=== PATIENT | male | born 1975 | race Caucasian/White ===

== ENCOUNTER → 2018-11-30 | Outpatient (CLI) | payer MEDICARE ==
--- NOTE | 2018-11-30 16:57 | REP ---
ULTRASOUND RIGHT 1ST DIGIT: Ultrasound right 1st digit ws performed at the site of a palpable lump. No cystic or solid nodules are seen at this location. Further evaluation may be made with MRI is clinically indicated. Electronically Signed by Miguel Gavin MD 11/30/2018 07:46 P
== END ==
LOC: M RAD 14:12
PROVIDERS: ATTEND Physician Assistant
DX: R22.31 Localized swelling, mass and lump, right upper limb (principal); L84 Corns and callosities

== ENCOUNTER → 2018-12-08 | Outpatient (REF) | payer MEDICARE | LOC: M SFHCPLAZ 18:16 | PROVIDERS: ATTEND Dermatology | DX: D22.30 Melanocytic nevi of unspecified part of face (principal) ==

== ENCOUNTER 2024-07-26 18:42 | Inpatient (IN) | payer MEDICARE, MEDICAID ==
[~2024-07-26] VITALS: Ht 193 cm; Wt 119.5 kg
[2024-07-26] MEDS: NS 1,000 ML IV ONE (18:55)
[2024-07-26] MEDS: ONDANSETRON 4MG 2ML VIAL IV ONE (19:16)
[2024-07-26] MEDS: MORPHINE 4 MG/ML 1ML VIAL IV ONE ×2 (19:16→22:37)
[2024-07-26 19:33] LABS: BASO # 0.1 10^3/uL (0.0-0.2); BASO % 0.5 % (0.0-1.0); EOS # 0.2 10^3/uL (0.0-0.5); EOS % 1.6 % (0.0-3.0); HEMATOCRIT 47.3 % (42.0-52.0); HEMOGLOBIN 16.3 g/dl (13.5-17.5); MEAN CORPUSCULAR HEMOGLOBIN 30.2 pg (27.0-33.0); MEAN CORPUSCULAR HGB CONC 34.5 g/dl (32.0-36.5); MEAN CORPUSCULAR VOLUME 87.8 fl (80.0-96.0); MONO # 0.8 10^3/uL (0.0-0.8); MONO % 8.8 % (2.0-8.0); NEUTROPHILS % 66.3 % (36.0-66.0); PLATELET COUNT, AUTOMATED 250 10^3/uL (150-450); RED BLOOD COUNT 5.39 10^6/uL (4.30-6.10); WHITE BLOOD COUNT 9.1 10^3/uL (4.0-10.0)
[2024-07-26 19:54] LABS: BLOOD UREA NITROGEN 18 MG/DL (9-23); CALCIUM LEVEL 9.2 MG/DL (8.5-10.1); CARBON DIOXIDE LEVEL 23 MMOL/L (20-31); CHLORIDE LEVEL 113 MMOL/L (98-107); CREATININE FOR GFR 0.95 MG/DL (0.70-1.30); GLOMERULAR FILTRATION RATE > 60.0 (>60); GLUCOSE, FASTING 193 MG/DL (60-100); MAGNESIUM LEVEL 2.2 MG/DL (1.8-2.4); POTASSIUM SERUM 4.4 MMOL/L (3.5-5.1); SODIUM LEVEL 142 MMOL/L (136-145)
[2024-07-26 19:56] LABS: THYROID STIMULATING HORMONE 5.121 uIU/ML (0.55-4.78)
[2024-07-26 19:57] LABS: FREE T4 0.85 NG/DL (0.89-1.76)
[2024-07-26] MEDS: MORPHINE 4 MG/ML 1ML VIAL IV PRN (21:10)
[2024-07-27] VITALS (11 sets, daily range): BP systolic 117–139; BP diastolic 67–94; TEMP 96.9–98.8; O2SAT 92–98
[2024-07-27] MEDS: NS 1,000 ML IV SCH (01:20)
[2024-07-27] MEDS ORDERED: BETA0.0543 TOP (02:06)
[2024-07-27] MEDS ORDERED: ADDE20TA PO (02:06)
[2024-07-27] MEDS ORDERED: BUPR-71 PO (02:06)
[2024-07-27] MEDS ORDERED: ZOLO100T PO (02:06)
[2024-07-27] MEDS ORDERED: LISI10TA22 PO (02:06)
[2024-07-27] MEDS ORDERED: ATOR40TA75 PO (02:06)
[2024-07-27] MEDS ORDERED: HOME MED LIST COMPLETE! XX SCH (02:10)
[2024-07-27 02:13] LABS: ALBUMIN 3.6 G/DL (3.2-5.2); ALKALINE PHOSPHATASE 110 U/L (46-116); ALT/SGPT 33 U/L (7.0-40); AST/SGOT 27 U/L (<34); BILIRUBIN,TOTAL 0.3 MG/DL (0.3-1.2); BLOOD UREA NITROGEN 14 MG/DL (9-23); CALCIUM LEVEL 8.4 MG/DL (8.5-10.1); CARBON DIOXIDE LEVEL 25 MMOL/L (20-31); CHLORIDE LEVEL 112 MMOL/L (98-107); CREATININE FOR GFR 1.02 MG/DL (0.70-1.30); GLOMERULAR FILTRATION RATE > 60.0 (>60); GLUCOSE, FASTING 129 MG/DL (60-100); POTASSIUM SERUM 4.6 MMOL/L (3.5-5.1); SODIUM LEVEL 141 MMOL/L (136-145); TOTAL PROTEIN 6.4 G/DL (5.7-8.2)
[2024-07-27] MEDS ORDERED: ADDERALL 5 MG TAB PO PRN (06:00)
[2024-07-27 06:25] LABS: HEMATOCRIT 43.8 % (42.0-52.0); HEMOGLOBIN 14.6 g/dl (13.5-17.5); MEAN CORPUSCULAR HGB CONC 33.3 g/dl (32.0-36.5); MEAN CORPUSCULAR VOLUME 90.1 fl (80.0-96.0); PLATELET COUNT, AUTOMATED 202 10^3/uL (150-450); RED BLOOD COUNT 4.86 10^6/uL (4.30-6.10); WHITE BLOOD COUNT 8.6 10^3/uL (4.0-10.0)
[2024-07-27] MEDS: MORPHINE 4 MG/ML 1ML VIAL IV PRN (07:50)
[2024-07-27 08:14] LABS: INR 1.04; PARTIAL THROMBOPLASTIN TIME 26.7 SECONDS (24.8-34.2); PROTHROMBIN TIME 13.3 SECONDS (12.5-14.5)
[2024-07-27] MEDS: buPROPion **SR TABLET** (ZYBAN) 150MG PO SCH (08:43)
[2024-07-27] MEDS: SERTRALINE 100 MG TAB PO SCH (08:44)
[2024-07-27] MEDS ORDERED: fentaNYL 100 MCG/2 ML INJECTION As Ordered ONE (12:55)
[2024-07-27] MEDS ORDERED: propofoL 200 MG/20 ML VIAL As Ordered ONE (12:56)
[2024-07-27] MEDS ORDERED: LIDOCAINE 2% 100MG/5ML SDV (FOR ANES.) As Ordered ONE (12:56)
[2024-07-27] MEDS ORDERED: ACETAMINOPHEN 1000MG 100ML IV BAG As Ordered ONE (12:56)
[2024-07-27] MEDS: MIDAZOLAM INJ 2MG/2ML VIAL IV PRN (13:16)
[2024-07-27] MEDS: fentaNYL 100 MCG/2 ML INJECTION IV PRN (13:16)
[2024-07-27] MEDS: ROPIvacaine 0.5% 30ML VIAL PN ONE (13:17)
[2024-07-27] MEDS: dexAMETHasone 10MG/1ML VIAL PRES.FREE PN ONE (13:17)
[2024-07-27] MEDS: LIDOCAINE 1% SDV 5ML VIAL PN ONE (13:17)
[2024-07-27] MEDS: ceFAZolin 1GM VIAL As Ordered ONE (14:11)
[2024-07-27] MEDS: ceFAZolin 2 GM/D5W 50 ML IV BAG As Ordered ONE (14:11)
[2024-07-27] MEDS ORDERED: KETOROLAC 60MG 2ML VIAL As Ordered ONE (14:22)
[2024-07-27] MEDS ORDERED: ONDANSETRON 4MG 2ML VIAL As Ordered ONE (14:22)
[2024-07-27] MEDS: ATORVASTATIN 20 MG TAB PO SCH (20:28)
[2024-07-27] MEDS: ceFAZolin SOD 2 GM in IV 1 EA IV SCH (20:33)
[2024-07-28] VITALS (8 sets, daily range): BP systolic 103–127; BP diastolic 63–79; TEMP 97.6–98.8; O2SAT 95–97
[2024-07-28] MEDS: IBUPROFEN 600MG TAB PO PRN (01:55)
[2024-07-28 07:14] LABS: HEMATOCRIT 37.3 % (42.0-52.0); MEAN CORPUSCULAR HGB CONC 33.5 g/dl (32.0-36.5); MEAN CORPUSCULAR VOLUME 89.4 fl (80.0-96.0); PLATELET COUNT, AUTOMATED 161 10^3/uL (150-450); RED BLOOD COUNT 4.17 10^6/uL (4.30-6.10); WHITE BLOOD COUNT 8.3 10^3/uL (4.0-10.0)
[2024-07-28 07:15] LABS: HEMOGLOBIN 12.5 g/dl (13.5-17.5)
[2024-07-28 07:29] LABS: ALBUMIN 2.9 G/DL (3.2-5.2); ALKALINE PHOSPHATASE 88 U/L (46-116); ALT/SGPT 26 U/L (7.0-40); AST/SGOT 35 U/L (<34); BILIRUBIN,TOTAL 0.5 MG/DL (0.3-1.2); BLOOD UREA NITROGEN 14 MG/DL (9-23); CALCIUM LEVEL 8.2 MG/DL (8.5-10.1); CARBON DIOXIDE LEVEL 27 MMOL/L (20-31); CHLORIDE LEVEL 109 MMOL/L (98-107); CREATININE FOR GFR 0.83 MG/DL (0.70-1.30); GLOMERULAR FILTRATION RATE > 60.0 (>60); GLUCOSE, FASTING 146 MG/DL (60-100); POTASSIUM SERUM 4.3 MMOL/L (3.5-5.1); SODIUM LEVEL 140 MMOL/L (136-145); TOTAL PROTEIN 5.5 G/DL (5.7-8.2)
[2024-07-28] MEDS ORDERED: CALCIUM CARBONATE 500 MG CHEW U/D PO PRN (16:30)
[2024-07-28] MEDS: CEFDINIR 300 MG CAP (OMNICEF) PO SCH (20:04)
[2024-07-28] MEDS: ACETAMINOPHEN 500 MG TAB PO PRN (21:13)
[2024-07-28] MEDS: GABAPENTIN 300 MG CAP PO SCH (23:43)
[2024-07-28] MEDS: CYCLOBENZAPRINE 5MG TABLET PO SCH (23:43)
[2024-07-29] MEDS: ACETAMINOPHEN TAB 650MG DOSE (2X325MG) PO SCH (03:16)
[2024-07-29 03:34] VITALS: BP 127/76; TEMP 97.8; O2SAT 95
[2024-07-29 06:48] LABS: HEMATOCRIT 36.3 % (42.0-52.0); HEMOGLOBIN 11.8 g/dl (13.5-17.5); MEAN CORPUSCULAR HEMOGLOBIN 29.4 pg (27.0-33.0); MEAN CORPUSCULAR HGB CONC 32.5 g/dl (32.0-36.5); MEAN CORPUSCULAR VOLUME 90.5 fl (80.0-96.0); PLATELET COUNT, AUTOMATED 141 10^3/uL (150-450); RED BLOOD COUNT 4.01 10^6/uL (4.30-6.10); WHITE BLOOD COUNT 5.7 10^3/uL (4.0-10.0)
[2024-07-29 07:12] LABS: ALBUMIN 2.7 G/DL (3.2-5.2); ALKALINE PHOSPHATASE 79 U/L (46-116); ALT/SGPT 17 U/L (7.0-40); AST/SGOT 25 U/L (<34); BILIRUBIN,TOTAL 0.5 MG/DL (0.3-1.2); BLOOD UREA NITROGEN 13 MG/DL (9-23); CALCIUM LEVEL 8.1 MG/DL (8.5-10.1); CARBON DIOXIDE LEVEL 29 MMOL/L (20-31); CHLORIDE LEVEL 116 MMOL/L (98-107); CREATININE FOR GFR 0.83 MG/DL (0.70-1.30); GLOMERULAR FILTRATION RATE > 60.0 (>60); GLUCOSE, FASTING 110 MG/DL (60-100); POTASSIUM SERUM 4.3 MMOL/L (3.5-5.1); SODIUM LEVEL 147 MMOL/L (136-145); TOTAL PROTEIN 5.3 G/DL (5.7-8.2)
[2024-07-29 07:28] VITALS: BP 129/78; TEMP 97; O2SAT 96
[2024-07-29] MEDS: OMEPRAZOLE 20MG CAP PO SCH (09:17)
[2024-07-29] MEDS: ENOXAPARIN 40MG/0.4ML SYRINGE (J1650 PER 10MG) SC SCH (09:18)
[2024-07-29 12:00] VITALS: BP 121/80; TEMP 97.5; O2SAT 97
[2024-07-29 15:31] VITALS: BP 132/75; TEMP 99.2; O2SAT 98
[2024-07-29 20:22] VITALS: BP 124/77; TEMP 98.7; O2SAT 96
[2024-07-30 03:18] VITALS: BP 144/87; TEMP 98.7; O2SAT 96
[2024-07-30 05:56] LABS: HEMATOCRIT 37.3 % (42.0-52.0); HEMOGLOBIN 12.4 g/dl (13.5-17.5); MEAN CORPUSCULAR HEMOGLOBIN 29.8 pg (27.0-33.0); MEAN CORPUSCULAR HGB CONC 33.2 g/dl (32.0-36.5); MEAN CORPUSCULAR VOLUME 89.7 fl (80.0-96.0); PLATELET COUNT, AUTOMATED 151 10^3/uL (150-450); RED BLOOD COUNT 4.16 10^6/uL (4.30-6.10); WHITE BLOOD COUNT 5.5 10^3/uL (4.0-10.0)
[2024-07-30 06:24] LABS: ALBUMIN 2.7 G/DL (3.2-5.2); ALKALINE PHOSPHATASE 82 U/L (46-116); ALT/SGPT 18 U/L (7.0-40); AST/SGOT 21 U/L (<34); BILIRUBIN,TOTAL 0.4 MG/DL (0.3-1.2); BLOOD UREA NITROGEN 11 MG/DL (9-23); CARBON DIOXIDE LEVEL 28 MMOL/L (20-31); CHLORIDE LEVEL 114 MMOL/L (98-107); CREATININE FOR GFR 0.77 MG/DL (0.70-1.30); GLOMERULAR FILTRATION RATE > 60.0 (>60); GLUCOSE, FASTING 126 MG/DL (60-100); POTASSIUM SERUM 4.1 MMOL/L (3.5-5.1); SODIUM LEVEL 143 MMOL/L (136-145); TOTAL PROTEIN 5.4 G/DL (5.7-8.2)
[2024-07-30 07:57] VITALS: BP_SYST 132; BP_SYST 147; BP_SYST 151; BP_DIAS 78; BP_DIAS 84; BP_DIAS 89; TEMP 98.2; O2SAT 96
[2024-07-30 08:26] VITALS: BP 132/78
[2024-07-30 11:30] VITALS: BP 113/76; TEMP 97.5; O2SAT 97
[2024-07-30] MEDS ORDERED: ACET1TAB55 PO (13:19)
[2024-07-30] MEDS ORDERED: OXYC1TAB23 PO (13:19)
[2024-07-30] MEDS ORDERED: CEFD300CAP PO (14:42)
== END 2024-07-30 15:11 | disposition home or self-care (01) | DRG 494 ==
LOC: M ED 18:42 → EDBD 18:42 → M ED INP 07-27 01:01 → M PCU 07-27 03:00
PROVIDERS: ADMIT Preventive Medicine Undersea and Hyperbaric Medicine; ATTEND Preventive Medicine Undersea and Hyperbaric Medicine
PROC: B246ZZZ Ultrasonography of Right and Left Heart (ICD-10-PCS; 2024-07-27)
PROC: 0QSK04Z Reposition Left Fibula with Internal Fixation Device, Open Approach (ICD-10-PCS; principal; 2024-07-27 15:00)
DX: S82.832A Other fracture of upper and lower end of left fibula, initial encounter for closed fracture (principal); W19.XXXA Unspecified fall, initial encounter; Y92.009 Unspecified place in unspecified non-institutional (private) residence as the place of occurrence of the external cause; Y93.9 Activity, unspecified; I10 Essential (primary) hypertension; E78.5 Hyperlipidemia, unspecified; F32.A Depression, unspecified; F90.9 Attention-deficit hyperactivity disorder, unspecified type; R73.03 Prediabetes; Z90.49 Acquired absence of other specified parts of digestive tract; Z79.899 Other long term (current) drug therapy; R55 Syncope and collapse

== ENCOUNTER → 2024-07-30 | Outpatient (CLI) | payer MEDICARE, MEDICAID ==
[~2024-07-30] MED LIST: ACET1TAB55 PO; ADDE20TA PO; ATOR40TA75 PO; BETA0.0543 TOP; BUPR-71 PO; CEFD300CAP PO; LISI10TA22 PO; OXYC1TAB23 PO; ZOLO100T PO
== END ==
LOC: M EKG 15:24
PROVIDERS: ATTEND Internal Medicine
DX: R55 Syncope and collapse (principal)

== ENCOUNTER → 2024-08-03 | Outpatient (CLI) | payer MEDICARE, MEDICAID | LOC: M SOG 10:20 | PROVIDERS: ATTEND Orthopaedic Surgery | DX: Z47.89 Encounter for other orthopedic aftercare (principal) ==

== ENCOUNTER → 2024-09-10 | Outpatient (CLI) | payer MEDICARE, MEDICAID | LOC: M SOG 08:21 | PROVIDERS: ATTEND Orthopaedic Surgery | DX: S82.832D Other fracture of upper and lower end of left fibula, subsequent encounter for closed fracture with routine healing (principal) ==

== ENCOUNTER → 2024-11-12 | Outpatient (CLI) | payer MEDICARE, MEDICAID | LOC: M SOG 07:52 | PROVIDERS: ATTEND Orthopaedic Surgery | DX: S82.832D Other fracture of upper and lower end of left fibula, subsequent encounter for closed fracture with routine healing (principal) ==